=== PATIENT | male | born 1995 | race Caucasian/White ===

== ENCOUNTER → 2017-03-28 | Outpatient (CLI) | payer MEDICAID ==
--- NOTE | 2017-03-28 08:32 | MR ---
EXAMINATION TYPE: MR lumbar spine wo con DATE OF EXAM: 03/28/2017 COMPARISON: 01/01/2016 HISTORY: low back pain TECHNIQUE: T1 and T2 axial and sagittal images of the lumbar spine are submitted. FINDINGS: There is no abnormal signal seen within the visualized spinal cord or paraspinal soft tissu es. At T12-L1 there is very mild chronic appearing compression of the superior endplate at T12. No disc h erniation or canal stenosis. No disc bulging seen on today's exam. Artifact in this area limits asses sment spinal cord. Nerve root sleeve diverticulum on the right seen. At L1-2 there is no degenerative disc disease, disc herniation, or canal stenosis. No foraminal encro achment. At L2-3 there is no degenerative disc disease, disc herniation, or canal stenosis. No foraminal encro achment. At L3-4 there is very mild hypertrophic change of the facets and minimal disc bulging appears stable. No canal stenosis or focal herniation. At L4-5 there is mild broad-based central disc bulging appears stable. Mild hypertrophic change of th e facets with no canal stenosis or foraminal encroachment. At L5-S1 there is broad-based disc small protrusion with mild effacement of the thecal sac also appea rs stable. Mild hypertrophic change of the facets. No Canal stenosis. Mild bilateral foraminal encroa chment greater on the left. IMPRESSION: 1. Stable disc bulging L3-4 and L4-5. Posterior broad-based disc bulge or small protrusion L5-S1 with foraminal encroachment also appears stable.
== END | disposition home or self-care (01) ==
LOC: RADMRIMAIN 06:58
PROVIDERS: ATTEND Orthopaedic Surgery Orthopaedic Surgery of the Spine
DX: M51.26 Other intervertebral disc displacement, lumbar region (principal); M51.27 Other intervertebral disc displacement, lumbosacral region
CPT/HCPCS: 72148

== ENCOUNTER → 2018-09-28 | Outpatient (CLI) | payer MEDICAID ==
[2018-09-28 12:46] LABS: Anion Gap 10 mmol/L; Blood Urea Nitrogen 15 mg/dL (9-20); Calcium 9.7 mg/dL (8.4-10.2); Carbon Dioxide 27 mmol/L (22-30); Chloride 105 mmol/L (98-107); Glucose 97 mg/dL (74-99); Potassium 4.6 mmol/L (3.5-5.1); Sodium 142 mmol/L (137-145)
== END ==
LOC: LABPAT 11:57
PROVIDERS: ATTEND Urology
DX: Z01.812 Encounter for preprocedural laboratory examination (principal); I86.1 Scrotal varices
CPT/HCPCS: 36415; 80048

== ENCOUNTER 2018-09-30 06:11 | Day surgery (SDC) | payer MEDICAID ==
[2018-09-28 10:19] VITALS: BMI 32.1
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
[~2018-09-30 06:11] MED LIST: DEXAMETHASONE SOD PHOSPHATE 10 MG/ML 1 ML VIAL IV ONE; LACTATED RINGERS 1,000 ML IV SCH; LIDOCAINE 1% 20 ML VIAL (10MG/ML) FOR IV START INTRADERMA PRN; MIDAZOLAM (PF) 2 MG/2 ML VIAL IV PRN; ONDANSETRON 4 MG/2 ML VIAL IVP ONE; ceFAZolin IN SWFI 2 GM/20 ML SYRINGE IVP ONE; fentaNYL (PF) 50 MCG/ML 2 ML AMP IV PRN
[2018-09-30] MEDS ORDERED: MIDAZOLAM 2 MG/2 ML VIAL IVP ONE (07:10)
[2018-09-30] MEDS ORDERED: MIDAZOLAM 2 MG/2 ML VIAL ONE (07:32)
[2018-09-30] MEDS ORDERED: fentaNYL (PF) 50 MCG/ML 2 ML AMP ONE (07:32)
[2018-09-30] MEDS ORDERED: LIDOCAINE 1% INJ 10MG/ML (20 ML MDV) ONE (07:32)
[2018-09-30] MEDS ORDERED: PROPOFOL 10 MG/ML 20 ML VIAL IV ONE (07:32)
[2018-09-30] MEDS ORDERED: SUCCINYLCHOLINE CHLORIDE VIAL 200 MG/10 ML VIAL IV ONE (07:32)
[2018-09-30] MEDS ORDERED: BUPIVACAINE (PF) 0.25% 30 ML VIAL MISCELLANE ONE (07:53)
[2018-09-30] MEDS ORDERED: LACTATED RINGERS 1,000 ML IV ONE (08:47)
--- NOTE | 2018-09-30 09:49 | P.OP ---
Date of Procedure: 09/30/18 Preoperative Diagnosis: Left varicocele Postoperative Diagnosis: Same Procedure(s) Performed: Left varicocele repair Anesthesia: REMYA Surgeon: Benigno Yanez Estimated Blood Loss (ml): 20 IV fluids (ml): 1,000 Pathology: other (Varicocele) Condition: stable Disposition: PACU Indications for Procedure: The patient is a 23-year-old white male who is been for approximately 1.5 years. He and his have had unprotected intercourse for over one year and she has failed to achieve . Semen analysis was obtained, revealing a sperm count of 13,000,000/mL, with abnormal morphology and mildly diminished motility. He is known to have a left varicocele, which was diagnosed in 2012. He was advised that a varicocele can cause male infertility , and he has thus elected to undergo a varicocele repair. Operative Findings: Several enlarged veins are identified within the left spermatic cord. Description of Procedure: The patient was taken in the operating room and placed in the supine position. The abdomen and external genitalia were prepped and draped sterilely. The scalpel was used to make an oblique incision over the left inguinal canal, along Nayla's lines. The Bovie electrocautery was used to incise the subcutaneous tissues, down to the external oblique aponeurosis. A right angle clamp was passed through the external inguinal ring, and the external oblique aponeurosis was incised over the spermatic cord with care taken not to injure the ilioinguinal nerve. The spermatic cord was then isolated. Cremasterics fibers were longitudinally. Several large veins were identified. These were isolated, ligated proximally and distally using 2-0 silk ties, and divided. The vas deferens was identified and preserved, as was the deferential artery. The pencil Doppler was used, but the testicular artery was not identified with certainty. Meticulous dissection was used to inspect the contents of the spermatic cord. All additional veins were ligated and divided. Each ligated vein was confirmed to be thin-walled, and the Doppler probe was used to evaluate each vessel prior to ligating and dividing it. The floor of the inguinal canal was inspected, and there were no perforating veins noted. Once the procedure was completed, the spermatic cord contents were returned to their normal anatomic position within the inguinal canal. The external oblique aponeurosis was closed using 3-0 Vicryl suture in a running fashion, with care taken to avoid injuring the ilioinguinal nerve. Hemostasis at this time was noted to be excellent. 0.25% Marcaine was injected beneath the external oblique aponeurosis, and also within the subcutaneous tissues. Katey's fascia was closed using 3-0 chromic suture in a running fashion. The skin was closed using 4-0 Monocryl suture in a running fashion. Steri-Strips were applied over the incision, followed by a sterile gauze dressing. All sponge and needle counts were correct. The patient tolerated the procedure well was taken to recovery was stable condition.
[2018-09-30 10:03] VITALS: TEMP 97.7
[2018-09-30] MEDS ORDERED: HYDROmorphone 1 MG/ML 1 ML SYRINGE IVP ONE ×3 (10:35→10:48)
[2018-09-30] MEDS ORDERED: ONDANSETRON 4 MG/2 ML VIAL IVP ONE (10:50)
[2018-09-30 11:30] VITALS: RESP 18
[2018-09-30 12:03] VITALS: BP 114/70; PULSE 114
== END 2018-09-30 12:17 | disposition home or self-care (01) ==
LOC: OR 06:11
PROVIDERS: ATTEND Urology
DX: I86.1 Scrotal varices (principal); E66.9 Obesity, unspecified; Z68.32 Body mass index [BMI] 32.0-32.9, adult; Z79.899 Other long term (current) drug therapy
CPT/HCPCS: 88304; 55530; J2250; J0330; J1100; J2405; J2001; J3010; J1170; J2704; J0690

== ENCOUNTER → 2019-04-15 | Outpatient (CLI) | payer MEDICAID ==
[2019-04-15 11:31] LABS: HCT 45.6 % (39.0-53.0); HGB 15.1 gm/dL (13.0-17.5); MCH 28.4 pg (25.0-35.0); MCHC 33.2 g/dL (31.0-37.0); MCV 85.5 fL (80.0-100.0); Mean Platelet Volume 7.5; Platelet Count 302 k/uL (150-450); RBC 5.33 m/uL (4.30-5.90); RDW 14.2 % (11.5-15.5); WBC 7.4 k/uL (3.8-10.6)
[2019-04-15 11:35] LABS: African American GFR (CKD) >90 (>60 ml/min/1.73 sqM); Anion Gap 10 mmol/L; Blood Urea Nitrogen 14 mg/dL (9-20); Calcium 9.3 mg/dL (8.4-10.2); Carbon Dioxide 26 mmol/L (22-30); Chloride 104 mmol/L (98-107); Glucose 99 mg/dL (74-99); Potassium 4.2 mmol/L (3.5-5.1); Sodium 140 mmol/L (137-145)
== END | disposition home or self-care (01) ==
LOC: LABPAT 10:39
PROVIDERS: ATTEND Urology
DX: Z01.812 Encounter for preprocedural laboratory examination (principal); N43.3 Hydrocele, unspecified; Z79.899 Other long term (current) drug therapy
CPT/HCPCS: 80048; 85027

== ENCOUNTER 2019-04-22 14:29 | Day surgery (SDC) | payer MEDICAID ==
[2019-04-20 14:56] VITALS: BMI 32.1
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
[~2019-04-22 14:29] MED LIST changes: +HYDROmorphone 0.5 MG/0.5 ML SYRINGE IVP PRN; -LIDOCAINE 1% 20 ML VIAL (10MG/ML) FOR IV START INTRADERMA PRN; -MIDAZOLAM (PF) 2 MG/2 ML VIAL IV PRN; +MIDAZOLAM 2 MG/2 ML VIAL IV PRN; +SCOPOLAMINE 1.5MG/72HR PATCH TRANSDERM ONE; -fentaNYL (PF) 50 MCG/ML 2 ML AMP IV PRN
[2019-04-22] MEDS ORDERED: LIDOCAINE 1% 20 ML VIAL (10MG/ML) FOR IV START SQ ONE (14:58)
[2019-04-22] MEDS ORDERED: KETOROLAC 30 MG/ML 1 ML VIAL ONE (15:27)
[2019-04-22] MEDS ORDERED: PROPOFOL 10 MG/ML 20 ML VIAL IV ONE (15:27)
[2019-04-22] MEDS ORDERED: LIDOCAINE 1% INJ 10MG/ML (20 ML MDV) ONE (15:27)
[2019-04-22] MEDS ORDERED: MIDAZOLAM 2 MG/2 ML VIAL ONE (15:27)
[2019-04-22] MEDS ORDERED: fentaNYL (PF) 50 MCG/ML 2 ML AMP ONE (15:27)
[2019-04-22] MEDS ORDERED: BUPIVACAINE (PF) 0.5% 30 ML VIAL SQ ONE ×2 (15:30→16:20)
[2019-04-22 16:44] VITALS: TEMP 98.3
--- NOTE | 2019-04-22 16:47 | P.OP ---
Date of Procedure: 04/22/19 Preoperative Diagnosis: Left hydrocele Postoperative Diagnosis: Same Procedure(s) Performed: Left Hydrocele Repair Anesthesia: REMYA Surgeon: Benigno Yanez Estimated Blood Loss (ml): 10 IV fluids (ml): 800 Pathology: none sent Condition: stable Disposition: PACU Indications for Procedure: The patient is a 24-year-old white male who is been for approximately 2 years. He and his had unprotected intercourse for over one year and she has failed to achieve . Semen analysis was obtained, revealing a sperm count of 13,000,000/mL, with abnormal morphology and mildly diminished motility. He was known to have a left varicocele, which was diagnosed in 2012. He was advised that a varicocele can cause male infertility, and he thus elected to undergo a varicocele repair, which was performed in September 2018. His sperm parameters improved significantly, and his is currently . However, he developed a left hydrocele. This was aspirated in November 2018 but has recurred. He has elected to undergo a hydrocele repair and comes for this reason. Operative Findings: Non-communicating left hydrocele. Description of Procedure: The patient was taken to the operating room and placed in the supine position. The external genitalia was prepped and draped sterilely. The scalpel was used to make a left anterior scrotal incision along Nayla's lines. The Bovie electrocautery was used to incise the underlying dartos fascia, down to the hydrocele sac. The hydrocele was opened, and straw-colored fluid was drained. The incision and the hydrocele sac was then extended, allowing the testicle to be delivered through the wound. The testicle appeared morphologically normal. The hydrocele sac was thickened. The Bovie electrocautery was used to excise the redundant hydrocele sac. 3-0 Vicryl suture was then used to suture the edge of the hydrocele sac in a running fashion for hemostasis. Excellent hemostasis was attained. The spermatic cord was infiltrated with local anesthetic. The testicle was returned to the hemiscrotum. The dartos fascia was closed using 3- 0 Vicryl suture in a running fashion. The skin was closed using 3-0 chromic suture in a running fashion. Surgical fluffs were placed over the incision, followed by scrotal support. All sponge and needle counts were correct. The patient tolerated the procedure well was taken to the recovery room in stable condition.
[2019-04-22] MEDS ORDERED: ONDANSETRON 4 MG/2 ML VIAL IVP ONE (17:06)
[2019-04-22 17:09] VITALS: RESP 16
[2019-04-22] MEDS ORDERED: METOCLOPRAMIDE 5 MG/ML 2 ML VIAL IVP ONE (17:20)
[2019-04-22 18:13] VITALS: BP 132/77; PULSE 99
== END 2019-04-22 18:28 | disposition home or self-care (01) ==
LOC: OR 14:29
PROVIDERS: ATTEND Urology
DX: N43.3 Hydrocele, unspecified (principal); K21.9 Gastro-esophageal reflux disease without esophagitis; Z98.890 Other specified postprocedural states; Z79.899 Other long term (current) drug therapy; Z91.011 Allergy to milk products
CPT/HCPCS: 55040; J2250; J1100; J2765; J2405; J2001; J3010; J1885; J2704; J1170; J0690

== ENCOUNTER → 2020-11-13 | Outpatient (CLI) | payer MEDICAID ==
--- NOTE | 2020-11-13 08:10 | MR ---
EXAMINATION TYPE: MR lumbar spine wo con DATE OF EXAM: 11/13/2020 COMPARISON: MRI lumbar spine March 28, 2017. CT lumbar spine November 22, 2014. HISTORY: Lower back pain, Center of back, down Right leg x 4 months, muscle spasm, wedge compression fracture L1 vertebra, radiculopathy, disc displacement, L5-S1 disc bulging all per order. TECHNIQUE: Multiplanar, multisequence imaging of the lumbar spine is performed without IV contrast. FINDINGS: Sagittal images of the lumbar spine show vertebral body heights and alignment to appear sta ble and satisfactory. Mild height loss along anterior superior L1 endplate redemonstrated. Some mild disc desiccation L5-S1 level redemonstrated otherwise the intervertebral discs redemonstrate normal h eights and hydration. The conus medullaris is normal in position and signal ending inferior L1 level . The bone marrow signal intensity remain within normal limits. Axial images show T12-L1, L1-L2, and L2-L3 levels all to remain within normal limits. Axial images at L3-L4 level redemonstrate mild facet degenerative changes bilaterally. Axial images at L4-L5 level redemonstrate mild facet degenerative changes bilaterally. Axial images at L5-S1 level redemonstrated [id number] broad disc bulge with more prominent righ t paracentral disc protrusion component on current study axial image 4, this effaces the lateral rece ss and the central right S1 nerve. Mild facet arthropathy bilaterally. Patent bilateral neural forami na. Paraspinal muscle bulk maintained. IMPRESSION: Some multilevel degenerative changes in the lower lumbar spine redemonstrated. Worsening disc herniation L5-S1 level effaces central right S1 nerve on current study.
== END | disposition home or self-care (01) ==
LOC: RADMRIMAIN 07:08
PROVIDERS: ATTEND Orthopaedic Surgery Orthopaedic Surgery of the Spine
DX: M51.27 Other intervertebral disc displacement, lumbosacral region (principal); M47.26 Other spondylosis with radiculopathy, lumbar region
CPT/HCPCS: 72148

== ENCOUNTER → 2020-12-10 | Outpatient (CLI) | payer MEDICAID ==
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
[2020-12-10 08:18] VITALS: BP 144/85; PULSE 80; RESP 18; TEMP 98.3
== END ==
LOC: PNWHC3 07:48
PROVIDERS: ATTEND Anesthesiology
DX: M51.26 Other intervertebral disc displacement, lumbar region (principal)
CPT/HCPCS: 99211

== ENCOUNTER → 2020-12-24 | Outpatient (CLI) | payer MEDICAID ==
[2020-12-24 09:38] LABS: Appearance,Urine Clear (Clear); Basophils % (A) 1 %; Bilirubin,Urine Negative (Negative); Blood,Urine Negative (Negative); Color,Urine Yellow; Eosinophils # (A) 0.1 k/uL (0-0.7); Eosinophils % (A) 2 %; Glucose,Urine (UA) Negative (Negative); HCT 48.6 % (39.0-53.0); HGB 16.7 gm/dL (13.0-17.5); Ketones,Urine Negative (Negative); Leukocyte Esterase,Urine Negative (Negative); Lymphocytes # (A) 1.9 k/uL (1.0-4.8); Lymphocytes % (A) 31 %; MCH 29.6 pg (25.0-35.0); MCHC 34.5 g/dL (31.0-37.0); MCV 85.9 fL (80.0-100.0); Mean Platelet Volume 7.4; Monocytes # (A) 0.5 k/uL (0-1.0); Monocytes % (A) 9 %; Neutrophils # (A) 3.4 k/uL (1.3-7.7); Neutrophils % (A) 56 %; Nitrite,Urine Negative (Negative); Platelet Count 273 k/uL (150-450); Protein,Urine Trace (Negative); RBC 5.66 m/uL (4.30-5.90); RDW 12.7 % (11.5-15.5); Specific Gravity,Urine 1.028 (1.001-1.035); Urobilinogen,Urine <2.0 mg/dL (<2.0); WBC 6.1 k/uL (3.8-10.6)
[2020-12-24 09:50] LABS: African American GFR (CKD) >90 (>60 ml/min/1.73 sqM); Anion Gap 10 mmol/L; Blood Urea Nitrogen 14 mg/dL (9-20); Calcium 9.4 mg/dL (8.4-10.2); Carbon Dioxide 25 mmol/L (22-30); Chloride 104 mmol/L (98-107); Glucose 102 mg/dL (74-99); Non-African American GFR(CKD) >90 (>60 ml/min/1.73 sqM); Potassium 4.2 mmol/L (3.5-5.1); Sodium 139 mmol/L (137-145)
[2020-12-24 09:59] LABS: INR 0.9 (<1.2); Partial Thromboplastin Time 23.4 sec (22.0-30.0); Prothrombin Time 10.1 sec (9.0-12.0)
--- NOTE | 2020-12-24 10:12 | XR ---
EXAMINATION TYPE: XR chest 2V DATE OF EXAM: 12/24/2020 COMPARISON: Chest x-ray January 18, 2005. HISTORY: Presurgical study. TECHNIQUE: Frontal and lateral views of the chest are obtained. FINDINGS: There is no focal air space opacity, pleural effusion, or pneumothorax seen. The cardiac silhouette size is within normal limits. The osseous structures are intact. IMPRESSION: No acute cardiopulmonary process.
== END | disposition home or self-care (01) ==
LOC: LABPAT 08:30
PROVIDERS: ATTEND Orthopaedic Surgery Orthopaedic Surgery of the Spine
DX: Z01.810 Encounter for preprocedural cardiovascular examination (principal); M51.27 Other intervertebral disc displacement, lumbosacral region
CPT/HCPCS: 36415; 71046; 80048; 81003; 85025; 85610; 85730; 86850; 86900; 86901; 87070; 93005

== ENCOUNTER → 2021-05-15 | Outpatient (CLI) | payer MEDICAID | END | disposition home or self-care (01) | LOC: LABWHC1 14:15 | PROVIDERS: ATTEND Emergency Medicine | DX: Z03.818 Encounter for observation for suspected exposure to other biological agents ruled out (principal); Z20.822 Contact with and (suspected) exposure to COVID-19 | CPT/HCPCS: 87635; C9803 ==

== ENCOUNTER → 2021-08-31 | Outpatient (CLI) | payer MEDICAID, OTHER | END | disposition home or self-care (01) | LOC: LABWHC1 08:30 | PROVIDERS: ATTEND Emergency Medicine | DX: Z20.828 Contact with and (suspected) exposure to other viral communicable diseases (principal) | CPT/HCPCS: 87635 ==

== ENCOUNTER → 2021-09-01 | Outpatient (CLI) | payer MEDICAID, OTHER | END | disposition home or self-care (01) | LOC: LABWHC1 09:17 | PROVIDERS: ATTEND Emergency Medicine | DX: Z20.822 Contact with and (suspected) exposure to COVID-19 (principal) | CPT/HCPCS: 87635 ==

== ENCOUNTER → 2023-12-01 | Outpatient (CLI) | payer MEDICAID ==
[2023-12-01 12:49] LABS: Basophils # (A) 0.05 X 10*3/uL (0.00-0.10); Basophils % (A) 0.8 %; Eosinophils # (A) 0.09 X 10*3/uL (0.04-0.35); Eosinophils % (A) 1.4 %; HCT 48.5 % (39.6-50.0); HGB 16.8 g/dL (13.0-17.0); Lymphocytes # (A) 1.97 X 10*3/uL (0.90-5.00); Lymphocytes % (A) 30.7 %; MCH 28.7 pg (27.0-32.0); MCHC 34.6 g/dL (32.0-37.0); MCV 82.8 FL (80.0-97.0); Monocytes # (A) 0.64 X 10*3/uL (0.20-1.00); NRBC Per 100 WBC 0 X 10*3/uL (0.00-0.01); Neutrophils # (A) 3.64 X 10*3/uL (1.80-7.70); Neutrophils % (A) 56.8 %; Platelet Count 279 X 10*3/uL (140-440); RBC 5.86 X 10*6/uL (4.40-5.60); RDW 12.9 % (11.5-14.5); WBC 6.41 X 10*3/uL (4.50-10.00)
[2023-12-01 13:21] LABS: Blood Urea Nitrogen 11.7 mg/dL (9.0-27.0); Carbon Dioxide 23.8 mmol/L (21.6-31.8); Chloride 103 mmol/L (96-109); Glucose 99 mg/dL (70-110); LDL Cholesterol,Calculated 112.2 mg/dL (0.0-131.0); Potassium 4.4 mmol/L (3.5-5.5); Sodium 138 mmol/L (135-145); VLDL Calculation 18.74 mg/dL (5.00-40.00)
[2023-12-01 13:22] LABS: ALT 63 U/L (10-49); AST 25 U/L (14-35); Albumin 4.6 g/dL (3.8-4.9); Albumin/Globulin Ratio 1.48 Ratio (1.60-3.17); Alkaline Phosphatase 106 U/L (41-126); Calcium 9.5 mg/dL (8.7-10.3); Globulin 3.1 g/dL (1.6-3.3); T4, Free (Free Thyroxine) 1.33 ng/dL (0.80-1.80); Total Bilirubin 0.5 mg/dL (0.3-1.2); Total Protein 7.7 g/dL (6.2-8.2)
== END | disposition home or self-care (01) ==
LOC: LABMAIN 07:11
PROVIDERS: ATTEND Family Medicine
DX: Z00.00 Encounter for general adult medical examination without abnormal findings (principal)
CPT/HCPCS: 80053; 80061; 83036; 84439; 84443; 85025

== ENCOUNTER 2024-02-12 16:02 | Emergency (ER) | payer OTHER, MEDICAID ==
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
[2024-02-12 16:47] VITALS: RESP 18
[2024-02-12] MEDS: ACET/COD 300 MG/30 MG STARTER PACK 6 TAB BTL PO STA (16:59)
[2024-02-12] MEDS: BACITRACIN OINT 1 EACH PACKET TOPICAL ONE (17:00)
[2024-02-12 17:26] VITALS: BP 145/81; PULSE 98; TEMP 98.7
== END 2024-02-12 17:12 | disposition home or self-care (01) ==
LOC: EC 16:02
DX: S50.12XA Contusion of left forearm, initial encounter (principal); T22.012A Burn of unspecified degree of left forearm, initial encounter; Z91.011 Allergy to milk products; V89.2XXA Person injured in unspecified motor-vehicle accident, traffic, initial encounter; Y92.411 Interstate highway as the place of occurrence of the external cause
CPT/HCPCS: 99284

== ENCOUNTER 2024-12-28 16:49 | Emergency (ER) | payer MEDICAID ==
[2024-12-28 16:54] VITALS: PULSE 71
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
[2024-12-28] MEDS: LIDOCAINE 1% INJ 10MG/ML (20 ML MDV) SQ ONE (17:24)
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
[2024-12-28] MEDS: IBUPROFEN 600 MG TAB PO STA (18:09)
[2024-12-28] MEDS: TOPICAL SKIN ADHESIVE 1 EACH AMP TOPICAL ONE (18:10)
[2024-12-28 18:46] VITALS: BP 132/75; RESP 16; TEMP 98
== END 2024-12-28 18:44 | disposition home or self-care (01) ==
LOC: EC 16:49
DX: S61.211A Laceration without foreign body of left index finger without damage to nail, initial encounter (principal); Z91.011 Allergy to milk products; W26.8XXA Contact with other sharp object(s), not elsewhere classified, initial encounter
CPT/HCPCS: 73140; 99283; 12001; J2003

== ENCOUNTER → 2025-02-02 | Outpatient (CLI) | payer MEDICAID ==
[2025-02-02 08:10] LABS: Basophils # (A) 0.06 10*3/uL (0.00-0.10); Eosinophils # (A) 0.12 10*3/uL (0.04-0.35); Eosinophils % (A) 1.9 %; HCT 48.2 % (39.6-50.0); HGB 17.1 g/dL (13.0-17.0); Lymphocytes % (A) 32.2 %; MCH 29.5 pg (27.0-32.0); MCHC 35.5 g/dL (32.0-37.0); MCV 83.2 fL (80.0-97.0); Mean Platelet Volume 9.3 fL (9.5-12.2); Monocytes % (A) 11.3 %; Neutrophils # (A) 3.31 10*3/uL (1.80-7.70); Neutrophils % (A) 53.1 %; Platelet Count 278 10*3/uL (140-440); RBC 5.79 10*6/uL (4.40-5.60); RDW 12.5 % (11.5-14.5); WBC 6.22 10*3/uL (4.50-10.00)
[2025-02-02 11:18] LABS: VLDL Calculation 17.84 mg/dL (5.00-40.00)
[2025-02-02 11:19] LABS: ALT 52 U/L (10-49); AST 29 U/L (14-35); Albumin 4.4 g/dL (3.8-4.9); Albumin/Globulin Ratio 1.47 Ratio (1.60-3.17); Alkaline Phosphatase 105 U/L (41-126); Blood Urea Nitrogen 13.5 mg/dL (9.0-27.0); Calcium 9.2 mg/dL (8.7-10.3); Carbon Dioxide 22.9 mmol/L (21.6-31.8); Chloride 104 mmol/L (96-109); Glucose 103 mg/dL (70-110); LDL Cholesterol,Calculated 110.8 mg/dL (0.0-131.0); Potassium 4.5 mmol/L (3.5-5.5); Sodium 140 mmol/L (135-145); Total Bilirubin 0.5 mg/dL (0.3-1.2); Total Protein 7.4 g/dL (6.2-8.2)
== END | disposition home or self-care (01) ==
LOC: LABMAIN 07:44
DX: Z13.220 Encounter for screening for lipoid disorders (principal); E55.9 Vitamin D deficiency, unspecified
CPT/HCPCS: 80053; 80061; 82306; 83036; 84443; 85025